=== PATIENT | female | born 1965 | race Caucasian/White ===

== ENCOUNTER 2018-01-23 12:37 | Emergency (ER) | payer OTHER ==
[~2018-01-23 12:37] MED LIST: ALBMDV INH; DIP25 PO; HYDR-3087 PO; IBU800 PO; LOR5 PO; LOR5/325 PO; PRA0.25 PO; TRA50 PO; [UNRECOGNIZED DRUG - CODE] TP; [UNRECOGNIZED DRUG - OTHER]; [UNRECOGNIZED DRUG - OTHER] PO
--- NOTE | 2018-01-23 12:55 | ER Report ---
History and Physical Time Seen By MD: 12:40 Hx. of Stated Complaint: PT REPORTS L FOOT PAIN/ 4 DIGIT PAIN AFTER TRIPPING THIS MORNING HPI/ROS CHIEF COMPLAINT: Left 4th toe injury HISTORY OF PRESENT ILLNESS: She is a 52-year-old female accompanied by her daughter, who presents to ED with complaint of left 4th toe injury that occurred 7 hours ago. She states that she woke up this morning and was walking down the stairs and tripped a little bit and injured her toe. She has not noted any swelling or bruising. She has been having pain with walking. She is not taking any medication or applied ice for this. REVIEW OF SYSTEMS: Constitutional: No fever, no chills. Cardiovascular: No chest pain, no palpitations. Respiratory: No cough, no shortness of breath. Musculoskeletal: See history of present illness. Skin: No rashes. Allergies: Coded Allergies: meperidine (Verified Allergy, Mild, LEG ACHES AND LEG MOVEMENTS, 01/23/18) aminobenzoic acid (Verified Adverse Reaction, Intermediate, RASH, 01/23/18) Uncoded Allergies: MUSCLE RELAXANTS (Allergy, Mild, GETS JUMPY LEGS AND TWITCHY, 03/26/08) Home Meds No Active Prescriptions or Reported Meds Reviewed Nurses Notes: Yes Hx Smoking: Yes Hx Substance Use Disorder: No Hx Alcohol Use: No Constitutional Vital Sign - Last 24 Hours 01/23/18 12:42 Temp 97.9 Pulse 81 Resp 16 B/P (MAP) 133/74 Pulse Ox 94 O2 Delivery Room Air Physical Exam General Appearance: The patient is alert, has no immediate need for airway protection and no current signs of toxicity. Patient appears to be in no acute distress. Respiratory: Chest is non tender, lungs are clear to auscultation. Cardiac: regular rate and rhythm Musculoskeletal: Neck: Neck is supple and non tender. There is a left 4th toe pain with palpation. No swelling or ecchymosis is identified. PT and DP pulses are 2+ with normal capillary refill. Normal sensation. Full range of motion of all toes with some pain. Skin: No rashes or lesions. Medical Decision Making ED Course/Re-evaluation ED Course Will obtain left 4th toe x-rays. 01/23/2018 1:21:08 pm - Appears to have proximal phalanx fracture of the left 4th toe. Decision to Disposition Date: Jan 23, 2018 Decision to Disposition Time: 13:21 Depart Departure Latest Vital Signs Vital Signs Date Time Temp Pulse Resp B/P (MAP) Pulse Ox O2 Delivery O2 Flow Rate FiO2 01/23/18 12:42 97.9 81 16 133/74 94 Room Air Impression: Primary Impression: Closed fracture of phalanx of left fourth toe Condition: Improved Disposition: HOME OR SELF-CARE Referrals: PAMELA MONTGOMERY (PCP) New Scripts No Active Prescriptions or Reported Meds Patient Instructions: Toe Fracture (ED) Additional Instructions: Rest, ice, elevate. Follow-up with primary care provider or podiatry in 2-3 days. If having any worsening or concerning symptoms may return to the emergency room. Problem Qualifiers Primary Impression: Closed fracture of phalanx of left fourth toe Encounter type: initial encounter Qualified Codes: S92.502A - Displaced unspecified fracture of left lesser toe(s), initial encounter for closed fracture CHERYLE MONCADA PA-C Jan 23, 2018 12:56
[2018-01-23 13:41] VITALS: BP 128/76
--- NOTE | 2018-01-23 14:34 | RADIOLOGY IMAGING REPORT ---
[place] [facility] [place] NAME: Domi Padilla : 1965 MR: [id number] V: [id number] EXAM DATE: ORDERING PHYSICIAN: CHERYLE MONCADA TECHNOLOGIST: Location: [facility] [place] Patient: Domi Padilla : 1965 Visit/Account:[id number] Date of Sevice: 01/23/2018 Exam type: TOE LEFT FOOT FOURTH DIGIT History: left 4th toe injury, left fourth metatarsal pain Comparison: None Findings: There is a slightly comminuted oblique fracture through the distal half of the proximal phalanx of th e left fourth toe. The fracture appears relatively nondisplaced. There suggestion of a transverse f racture through the distal metaphysis of the proximal phalanx left fifth toe which is likely old. IMPRESSION: 1. Slightly comminuted relatively nondisplaced fracture through the distal half of the proximal phal anx of the left fourth toe Probable old fracture through the distal metaphysis of the proximal phalanx of the left fifth toe Report Dictated By: Dali Barbosa MD at 01/23/2018 2:26 PM Report E-Signed By: Dali Barbosa MD at 01/23/2018 2:29 PM WSN:[email or web address]
== END 2018-01-23 13:43 | disposition home or self-care (01) ==
LOC: ER 12:38
DX: S92.502A Displaced unspecified fracture of left lesser toe(s), initial encounter for closed fracture (principal); W18.40XA Slipping, tripping and stumbling without falling, unspecified, initial encounter
CPT/HCPCS: 99283

== ENCOUNTER 2018-08-28 22:17 | Emergency (ER) | payer OTHER ==
--- NOTE | 2018-08-28 22:27 | ER Report ---
History and Physical Time Seen By MD: 22:28 Hx. of Stated Complaint: Patient states she was bit in the lip by her dog 30 minutes ago HPI/ROS CHIEF COMPLAINT: dog bite on lip HISTORY OF PRESENT ILLNESS: This is a 52 year old female. She was bit on the lower lip by her dog, startled. Not sure on all shots. 30 minutes prior to arrival. Dog in a situation to be observed. Last tetanus 3 years ago. Allergies: Coded Allergies: meperidine (Verified Allergy, Mild, LEG ACHES AND LEG MOVEMENTS, 08/28/18) aminobenzoic acid (Verified Adverse Reaction, Intermediate, RASH, 08/28/18) Uncoded Allergies: MUSCLE RELAXANTS (Allergy, Mild, GETS JUMPY LEGS AND TWITCHY, 03/26/08) Home Meds Active Scripts Amoxicillin/Pot Clav 875-125 Mg Tab (AUGMENTIN 875-125 TABLET) 1 Each Tablet, 1 TAB PO Q12H, #20 TAB 0 Refills Prov:NABEEL HADLEY MD 08/28/18 Reviewed Nurses Notes: Yes Hx Smoking: Yes Hx Substance Use Disorder: No Hx Alcohol Use: No Constitutional Vital Sign - Last 24 Hours 08/28/18 08/28/18 22:22 23:54 Temp 98.2 Pulse 60 85 Resp 15 16 B/P (MAP) 143/89 138/84 (102) Pulse Ox 96 95 O2 Delivery Room Air Room Air Physical Exam General: Alert and oriented. Skin: Has a 2.5 cm laceration of the lower lip. Flap like and crosses the [place] border in two placed. Starts on lip, goes down into skin, and than back up into lip tissue near left corner. Jagged edges, with some lateral edge with what appears to be small piece missing. Medical Decision Making ED Course/Re-evaluation ED Course Procedure: Laceration Repair Verbal consent from patient after discussing repair options, risks and benefits. Wound cleaned extensively with Hibiclens and saline. Anesthesia: 1% lidocaine without epi and 0.5% bupivacaine without epi. In the interior lip and then small amount into the lip.. Location: Lower lip middle to left corner. Length: 2.5 cm. Character: jagged and flap as described.. Wound repair: 6 interrupted 6-0 Prolene sutures. The wound repair was simple and performed by myself. Wound care instructions discussed. Sutures need to be removed in 5 days. Augmentin 875/125 twice a day for 10 days. Decision to Disposition Date: Aug 28, 2018 Decision to Disposition Time: 23:45 Depart Departure Latest Vital Signs Vital Signs Date Time Temp Pulse Resp B/P (MAP) Pulse Ox O2 Delivery O2 Flow Rate FiO2 08/28/18 23:54 85 16 138/84 (102) 95 Room Air 08/28/18 22:22 98.2 Impression: Primary Impression: Lip laceration Additional Impression: Dog bite of face Condition: Improved Disposition: HOME OR SELF-CARE Referrals: PAMELA MONTGOMERYP (PCP) New Scripts Amoxicillin/Pot Clav 875-125 Mg Tab (AUGMENTIN 875-125 TABLET) 1 Each Tablet 1 TAB PO Q12H, #20 TAB 0 Refills Prov: NABEEL HADLEY MD 08/28/18 Patient Instructions: Animal Bite (ED), Facial Laceration (ED) Additional Instructions: Wound Care: Wash the wound once a day with soap and water. Dry the wound and apply a small amount of antibiotic ointment with a clean dressing. If the dressing becomes wet or dirty, repeat cleaning and dressing as above. No soaking the wound; no swimming. Stitches need to be removed in 5 days. Pain Control: Use Tylenol or ibuprofen for pain. Using and ice pack can help reduce swelling. Antibiotic: Augmentin 875/125 twice a day for 10 days Problem Qualifiers Primary Impression: Lip laceration Encounter type: initial encounter Qualified Codes: S01.511A - Laceration without foreign body of lip, initial encounter Additional Impression: Dog bite of face Encounter type: initial encounter Qualified Codes: S01.85XA - Open bite of other part of head, initial encounter; W54.0XXA - Bitten by dog, initial encounter NABEEL HADLEY MD Aug 28, 2018 22:27
[2018-08-28] MEDS ORDERED: AMOX/CLAV 875 MG TAB PO ONE (23:45)
[2018-08-28] MEDS ORDERED: AMOX-559 PO (23:46)
[2018-08-28 23:54] VITALS: BP 138/84
== END 2018-08-29 00:10 | disposition home or self-care (01) ==
LOC: ER 22:28
DX: S01.511A Laceration without foreign body of lip, initial encounter (principal); S01.551A Open bite of lip, initial encounter; W54.0XXA Bitten by dog, initial encounter
CPT/HCPCS: 99283